=== PATIENT | female | born 1955 | race Caucasian/White ===

== ENCOUNTER 2020-07-15 15:34 | Observation (INO) | payer MEDICARE, BC, SELFPAY ==
[2020-07-15] VITALS (13 sets, daily range): BP systolic 114–129; BP diastolic 60–72; PULSE 63–88; RESP 14–20; TEMP 36.2–36.3; O2SAT 96–100; BMI 28.8
--- NOTE | ~2020-07-15 | MR_ITS ---
EXAMINATION: MR brain/brain stem wo/w con DATE: 07/16/2020 14:43 INDICATION: Altered mental status. TECHNIQUE: Magnetic resonance imaging (MRI) of the brain and brainstem was performed without and with 11 mL MultiHance intravenous contrast. Sequences included sagittal and axial T1-weighted FSE, axial diffusion-weighted FS EPI, axial T2*-weighted GRE, axial T2-weighted FLAIR Propeller, and axial T2-we ighted Propeller. Postcontrast sequences included axial and coronal T1-weighted FSE. Apparent diffusi on coefficient (ADC) maps were created. COMPARISON: Head CT 07/15/2020 FINDINGS: There is no intracranial hemorrhage, acute infarction, or abnormal intracranial mass lesion . The ventricles are normal in size. There is mucosal thickening in the paranasal sinuses. There is d ependent fluid in the maxillary sinuses. The orbits are normal. The mastoid air cells are normal. IMPRESSION: 1. Normal brain. Reviewed, dictated and finalized at location B. RAFT QUALITY CONTROL INSPECTOR IMPRESSION: 1. Normal brain.
--- NOTE | ~2020-07-15 | CT_ITS ---
EXAMINATION: CTA brain carotid DATE: 07/15/2020 17:42 INDICATION: Confusion and altered mental status TECHNIQUE: Computed tomographic angiography (CTA) of the head was performed without and with 100 mL O mnipaque-350 intravenous contrast. CTA of the neck was performed with intravenous contrast. The dose- length product was 1056.62 mGy-cm. Maximum intensity projection and volume rendered 3D-reconstruction s were created by the technologist on a separate workstation. Automated exposure control and iterativ e reconstruction technique were employed. COMPARISON: None. FINDINGS: HEAD CTA: There is no intracranial hemorrhage, acute infarction, or abnormal mass lesion. The ventric les are normal. There is no abnormal mass effect or midline shift. The cole-white matter differentiat ion is normal. The basal cisterns are patent. The orbits are normal. There is mild mucosal thickening of the paranasal sinuses. There is no significant stenosis of the basilar artery or posterior cerebral arteries. There is no si gnificant stenosis of the intracranial internal carotid arteries or the anterior or middle cerebral a rteries. The anterior communicating artery and posterior communicating arteries are normal. There is no aneurysm. NECK CTA: The thyroid gland is unremarkable. The submandibular and parotid glands are symmetric. Ther e is no lymphadenopathy. There are no masses identified. The airway is unremarkable. There is moderat e cervical spondylosis. The superior mediastinum is unremarkable. There is 0% stenosis of the proximal right internal carotid artery relative to normal distal artery l umen diameter (NASCET criteria). There is 0% stenosis of the proximal left internal carotid artery re lative to normal distal artery lumen diameter. Minimal calcified atherosclerosis is noted in the bila teral internal carotid arteries IMPRESSION: 1. No acute intracranial abnormality. Normal head CTA. 2. 0% stenosis of the proximal right internal carotid artery relative to normal distal artery lumen d iameter (NASCET criteria). 3. 0% stenosis of the proximal left internal carotid artery relative to normal distal artery lumen di ameter. Reviewed, dictated and finalized at location A. OMER RECORDS DIVISION SUPERVISOR IMPRESSION: 1. No acute intracranial abnormality. Normal head CTA. 2. 0% stenosis of the proximal right internal carotid artery relative to normal distal artery lumen diameter (NASCET criteria). 3. 0% stenosis of the proximal left internal carotid artery relative to normal distal artery lumen diameter.
--- NOTE | ~2020-07-15 | CT_ITS ---
EXAMINATION: CT brain wo con DATE: 07/15/2020 16:17 INDICATION: Confusion, altered mental state, dizziness TECHNIQUE: Computed tomography (CT) of the head was performed without intravenous contrast. The mA wa s adjusted according to patient size. Iterative reconstruction technique was employed. Exam dose: 60 5.33 mGy-cm total exam DLP. COMPARISON: None FINDINGS: No intracranial mass lesion or hemorrhage or cerebrovascular accident. No midline shift or mass effect. Normal ventricular size. No subdural or epidural hematoma. Bilateral carotid siphon internal carotid artery calcifications. No fracture or bone destruction of the cranial vault. The mastoid air cells are normally developed and aerated. There is mild soft tissue thickening of the right maxillary sinus and bilateral ethmoid air cells. IMPRESSION: Cerebral atherosclerosis No acute intracranial finding Reviewed, dictated and finalized at Location A. Reviewed, dictated and finalized at location A. LAMINATING MACHINE FEEDER
--- NOTE | ~2020-07-15 | XR_ITS ---
XR chest 2V DATE: 07/15/2020 16:23 INDICATION: Dizziness. Hypertension. TECHNIQUE: PA and lateral views COMPARISON: 07/30/2015 PA and lateral chest FINDINGS: Normal heart size. No hilar or mediastinal enlargement. No pulmonary infiltrate or consolidation, pleural effusion or pulmonary vascular congestion or pneumo thorax. Degenerative spurring of the thoracic spine. IMPRESSION: No active cardiopulmonary disease Reviewed, dictated and finalized at location A. BER LIGHT
[2020-07-15 15:43] LABS: Glucose Point of Care 114 (65-105)
--- NOTE | 2020-07-15 15:43 | ECG_ITS ---
Measurements Intervals [place] Rate: 66 P: 43 [place]: 137 QRS: -31 QRSD: 100 T: -64 QT: 378 QTc: 398 Interpretive Statements SINUS RHYTHM LEFT AXIS DEVIATION DELAYED PRECORDIAL R/S TRANSITION VOLTAGE CRITERIA FOR LVH BORDERLINE T WAVE ABNORMALITY- ANTEROLAT/INF LEADS BASELINE ARTIFACT- I, II, III, AVR, AVL, AVF, V4-V5 BORDERLINE ECG Electronically Signed On 07-15-2020 15:46:57 CLUB MANAGER by Zen March D.O.
--- NOTE | 2020-07-15 15:45 | ED.AMS ---
HPI - Altered Mental Status General Chief Complaint: Altered Mental Status Stated Complaint: dizzy Time Seen by Provider: 07/15/20 15:45 Source: patient and family Mode of arrival: wheelchair Limitations: no limitations History of Present Illness HPI narrative: Patient is a 64-year-old female with a history of hypothyroidism, hypertension who presents for evaluation of altered mental status. Patient is currently alert and oriented to person, place, to time. She reports intermittent dizziness, no spinning sensation, no double vision, no chest pain, no headache. She denies any weakness or numbness. Patient states that she has felt very fatigued throughout the day today, states that she has been easily falling asleep. He states she intermittently has been asking questions about her grandkids, intermittently about asking about sister in [place], and states that they have not seen the grandkids today, her sister in [place] is not visiting. states patient is acting very abnormal for her. She denies any drug use or alcohol use. She recently had her thyroid medication increased and has been compliant with this increase in dosage. Related Data Allergies Allergy/AdvReac Type Severity Reaction Status Date / Time No Known Allergies Allergy Verified 07/15/20 15:45 Review of Systems Review of Systems: Narrative: CONSTITUTIONAL: Denies fever, chills, or sweats. EYES: Denies visual changes, redness, or discharge. ENT: Denies rhinorrhea, congestion, sore throat, or otalgia. CARDIOVASCULAR: Denies chest pain, palpitations, or edema. RESPIRATORY: Denies cough or dyspnea. GASTROINTESTINAL: Denies abdominal pain, nausea, vomiting, or diarrhea. GENITOURINARY: Denies dysuria or hematuria. SKIN: Denies rash or itching. MUSCULOSKELETAL: Denies back pain, joint pain, or myalgia. NEUROLOGIC: Denies headache, numbness, or weakness. [facility] Past Medical History Medical History BMI 27.0-27.9,adult Chronic pain of left thumb GERD without esophagitis Hypertension Screening mammogram, encounter for Vasomotor rhinitis Surgical History Surgical History History of hysterectomy History of spinal fusion Family History Family History Mother Family history of cardiovascular disease Family history of Alzheimer's disease Father Family history of cardiovascular disease Other Family history of coronary artery disease Family history of malignant neoplasm of breast Social History Social History Smoking status: Never smoker Smoking end date: 08/06/76 Alcohol intake: current Gender identity (if verbalized by the patient): Female Exam Narrative: Exam Narrative: GENERAL: Awake, alert, conversant HEAD: Normocephalic, atraumatic. EYES: PERRLA and EOMI. ENT: Nares clear, no rhinorrhea or epistaxis. Mucous membranes moist. NECK: Supple. CHEST: No respiratory distress, breathing even and non labored HEART: Regular rate, sinus rhythm ABDOMEN:Non distended, non tender EXTREMITIES: Normal range of motion. No edema. SKIN: Warm, dry, no rash. NEURO:No focal deficits. Alert and oriented x3. Finger to nose intact bilaterally. EOMs intact without nystagmus. No facial droop/asymmetry noted bilaterally. Grimace intact. Intact sensation in face. Hearing intact bilaterally. Shoulder shrug intact. Strength 5/5 bilateral upper extremities. Strength 5/5 bilateral lower extremities. Reflexes 2+ patellar. Heel to schaffer intact bilaterally. Ambulatory exam deferred. Course Vital Signs Vital signs: Vital Signs Temperature 36.3 C L 07/15/20 15:39 Pulse Rate 68 07/15/20 15:39 Respiratory Rate 17 07/15/20 15:39 Blood Pressure 129/72 07/15/20 15:39 Pulse Oximetry 97 07/15/20 15:39 Temperature 36.3 C L 07/15
[2020-07-15 15:52] LABS: Basophils Absolute Auto 0.1 K/mm3 (0.0-0.1); Basophils Percent Auto 0.8 % (0.2-1.2); Eosinophils Absolute Auto 0.1 K/mm3 (0-0.3); Eosinophils Percent Auto 1.4 % (0-4.4); Hemoglobin 12.3 g/dL (12.0-15.0); Immature Granulocyte Absolute 0.02 K/mm3 (0.00-0.031); Immature Granulocyte Percent A 0.3 % (0-0.5); Lymphocytes Percent Auto 46.8 % (18.3-44.2); Mean Corpuscular HGB Conc 33.2 g/dl (32-36); Mean Corpuscular Hemoglobin 32.1 pg (26-34); Mean Corpuscular Volume 96.6 fl (80-100); Monocytes Absolute Auto 0.6 K/mm3 (0.1-0.6); Monocytes Percent Auto 9.4 % (2.6-8.5); Neutrophils Absolute Auto 2.7 K/mm3 (1.3-6.7); Neutrophils Percent Auto 41.3 % (45.5-73.1); Platelet Count Result 246 k/mm3 (150-375); Red Blood Count 3.83 M/mm3 (4.2-5.4); Red Cell Distribution Width 11.9 % (11.5-14.5); White Blood Count 6.6 K/mm3 (4.5-10.0)
[2020-07-15] MEDS: SODIUM CHLORIDE 0.9% IV 1,000 ML 999 ML IV CONT (15:53)
[2020-07-15 16:07] LABS: Alanine Aminotransferase 32 U/L (4-35); Albumin Level 4.5 g/dL (3.5-5.1); Alkaline Phosphatase 55 U/L (38-126); Anion Gap 9 mmol/L (8-16); Aspartate Amino Transferase 37 U/L (14-36); Bilirubin,Total 0.4 mg/dL (0.2-1.3); Blood Urea Nitrogen 18 mg/dL (7-17); Calcium 9.7 mg/dL (8.4-10.2); Carbon Dioxide 25 mmol/L (22-30); Chloride 105 mmol/L (98-107); Estimated Glomerular Filt Rate > 60; Glucose 114 mg/dL (65-105); Potassium 4.3 mmol/L (3.4-5.0); Sodium 139 mmol/L (137-145)
[2020-07-15 16:08] LABS: Fractional Inspired Oxygen 21 %; HCO3 ABG 25.1 mEq/l (22.0-26.0); Oxygen Content ABG 11.4 %vol (16.0-22.0); Oxygen Saturation ABG 61.9 % (95.0-100.0); Oxyhemoglobin 66.1 % THb (90.0-100.0); PCO2 ABG 47.2 mmHg (35.0-45.0); PO2 FiO2 Ratio Arterial Blood 1.63 %; Total Hemoglobin 12.3 g/dL (12.0-18.0); pH ABG 7.343 (7.350-7.450)
[2020-07-15 16:15] LABS: Ammonia 15 umol/L (9-30); Ethanol < 10 mg/dL (<10)
[2020-07-15 16:15] LABS: Device ROOM AIR; Modified Allen's Test Pass; Site Drawn LEFT RADIAL
[2020-07-15 16:17] LABS: PO2 ABG 34.2 mmHg (80.0-100.0)
[2020-07-15 16:19] LABS: Troponin I < 0.012 ng/mL (0.000-0.034)
[2020-07-15 16:22] LABS: INR 0.9; Prothrombin Time 12.8 Seconds (11.1-14.7)
[2020-07-15 16:23] LABS: Partial Thromboplastin Time 26.5 SECONDS (22.3-36.8)
[2020-07-15 16:38] LABS: Thyroid Stimulating Hormone 0.872 uIU/mL (0.465-4.680)
[2020-07-15 16:48] LABS: Add Urine Microscopic? NO; Appearance Urine Clear (Clear); Bilirubin Urine Negative (Negative); Blood Urine Negative (Negative); Color Urine Straw (Yellow); Glucose Urine UA Negative (Negative); Ketones Urine Negative (Negative); Leukocyte Esterase Ur Negative LEU/UL (Negative); Nitrate Urine Negative (Negative); Protein Urine Negative (Negative); Specific Grav Ur 1.006 (1.001-1.035); Urobilinogen Urine Negative mg/dL (<2.0)
[2020-07-15] MEDS: ACETAMINOPHEN 500 MG TABLET 1000 MG PO (19:23)
--- NOTE | 2020-07-15 19:52 | ADMGEN ---
This patient, Mirta Mccormick, was admitted to Medical Room [facility] at 1935. Patient/family oriented to hospital policies and general routines including ID bracelet, bed and alarms, visiting hours, pain management, procedures, bathroom and other care routines, personal items, smoking policy, room service/diet, and visiting hours. Information on how to activate the Rapid Response Team has been discussed. Patient/Family are encouraged to report perceived risks to care and to ask questions if they do not understand what they are told or what they should do.
--- NOTE | 2020-07-15 20:00 | PM.IMHP ---
H&P: HPI History of Present Illness Date/Time: 07/15/20 20:00 Chief complaint: Altered mental status, dizziness Narrative: Mirta Mccormick is a 64 year old female with past medical history hypothyroidism, hypertension, GERD presents to ED with altered mental status. Patient states yesterday she was normal at baseline, woke up this morning around 8:30 a.m. which is normal for her. She is retired for last 5 years. She thinks she went to the shower does not recall anything that happened all day but does know she was in clean clothes. She has random moments of recollection and I believe she does not really remember what happened just reiterated what her had told her. She apparently was slurring her words and was somnolent all day, had auditory hallucinations of family members. She remembers taking a nap in was woken by her [id number]-ti-ald's cold hand. She thinks she remember some things from the ED talking to a woman which is in fact correct with a female provider. By roughly 7:00 p.m. she is back to baseline with no confusion or somnolence. She described the entire episode of what she remembers as an out of body experience. She has never had any episodes like this in the past that she knows of. She states she does not take any substances, quit smoking 1.5ppd 43 years ago, seldom alcohol use, denies drug use. Only medications that is new is thyroid medication change from 88 mcg to 100 mcg 2 weeks ago. Otherwise she has been on the same medications for her acid reflux hypertension. She does take many supplements including vitamin D, vitamin E and supplement to prevent Alzheimer's disease. She is concerned because her mother has Alzheimer's dementia and had episodes of blacking out which were never explained. Patient is not on any pain medication, she had spinal fusion of L3-L4-L5 and only takes Tylenol for pain. She states she has no stress in her life and has been retired. There have been no major life events and her children are healthy and safe. In the ED: Vitals stable, lab work within normal limits, chest x-ray negative, CT head noncontrast cerebral atherosclerosis with no acute finding, CTA head and neck without stenosis, EKG normal sinus rhythm rate 66 with left axis deviation, NIH stroke scale 0. ED consulted neurology agreed to further workup. Patient needed for observation for altered mental status. Review of Systems Review of Systems: Narrative: Constitutional: No Fever, No Chills, No Night Sweats, No Fatigue, No Malaise ENT/Mouth: No Hearing Changes, No Ear Pain, No Nasal Congestion, No Sinus Pain, No Hoarseness, No sore throat, No Rhinorrhea, No Swallowing Difficulty Eyes: No Eye Pain, No Redness, No Vision Changes Cardiovascular: No Chest Pain, No Palpitations, No Dyspnea on Exertion, No Orthopnea, No Claudication, No Edema Respiratory: No Cough, No Sputum, No Wheezing, No Shortness of Breath Gastrointestinal: No Nausea, No Vomiting, No Diarrhea, No Constipation, No Abdominal Pain, No Heartburn, No Hematochezia, No Melena Genitourinary: No Dysuria, No Urinary Frequency, No Hematuria, No Urinary Incontinence, No Urgency Musculoskeletal: No Arthralgias, No Myalgias, No Joint Swelling, No Joint Stiffness, No Back Pain Skin: No Skin Lesions, No Pruritis, No Hair Changes Neuro: No Weakness, No Numbness, No Paresthesias, No Loss of Consciousness, No Syncope, No Dizziness, No Headache Psych: No Anxiety/Panic, No Depression, No Insomnia. Heme: No Bruising, No Bleeding Lymph: No Adenopathy Endocrine: No Polyuria, No Polydipsia, No Temperature Intolerance PMFSH Past Medical History Medical History (Updated 07/15/20 @ 20:22 by Saniya Patel DO) BMI 27.0-27.9,adult Chronic pain of left thumb Eczema GERD without esophagitis Hypertension Hypothyroidism Screening mammogram, encounter for Vasomotor rhinitis Surgical History Surgical History (Updated 07/15/20 @ 20:20 by Saniya Patel DO) H/O total hysterecto
[2020-07-16] VITALS (7 sets, daily range): BP systolic 113–124; BP diastolic 54–64; PULSE 62–72; RESP 14–18; TEMP 36.5–36.9; O2SAT 96–97
--- NOTE | 2020-07-16 05:40 | PCDIET ---
pt now saying bystolic is supposed to be 15mg pt md report from May says 5 mg. Pt supposed to call and have him read label to nurse. Dandre is recent md for pt due to relocation to [place].
[2020-07-16] MEDS: LEVOTHYROXINE SODIUM 100 MCG TABLET PO (05:50)
[2020-07-16 06:01] LABS: Anion Gap 8 mmol/L (8-16); Blood Urea Nitrogen 13 mg/dL (7-17); Calcium 9.2 mg/dL (8.4-10.2); Carbon Dioxide 26 mmol/L (22-30); Chloride 107 mmol/L (98-107); Estimated CRCL calculation 61 ml/min; Estimated Glomerular Filt Rate > 60; Glucose 106 mg/dL (65-105); Potassium 4.2 mmol/L (3.4-5.0); Sodium 141 mmol/L (137-145)
[2020-07-16] MEDS: LOSARTAN POTASSIUM 50 MG TABLET PO (08:55)
[2020-07-16] MEDS: SPIRONOLACTONE 50 MG TABLET 100 MG PO (08:56)
[2020-07-16] MEDS: MELOXICAM 7.5 MG TABLET 15 MG PO (08:56)
[2020-07-16] MEDS: LANSOPRAZOLE ORAL SUSP 30 MG/10 ML ORAL.SUSP PO (08:56)
--- NOTE | 2020-07-16 09:27 | WPDNEURCNPN ---
Assessment and Plan Assessment and plan (1) Hypothyroidism: Code(s): E03.9 - Hypothyroidism, unspecified Status: Acute (2) Altered mental status: Qualifiers: Altered mental status type: transient alteration of awareness Qualified Code(s): R40.4 - Transient alteration of awareness Code(s): R41.82 - Altered mental status, unspecified Status: Acute (3) Dizziness: Code(s): R42 - Dizziness and giddiness Status: Acute Additional Plan Acute changes in the mental status rule out the possibility of seizure will obtain the EEG in addition to the possibility of underlying ongoing dementia will need the MRI of the head as well further recommendation according Consult date: 07/16/20 Time Seen: 09:27 HPI: Mirta Mccormick is a 64 year old female Admitted to the hospital for the complaints of change in the mental status along with dizziness in addition to the comorbid conditions of 1. Hypertension 2. Hypothyroidism 3. GERD. As per the information available she woke [facility] in the [facility] could not recall anything what ever happen whole day and subsequently reiterated what her had told her her speech was somewhat slurred and she was somnolent and also had auditory hallucinations she describes the whole episode as an out of body experience with no history of such experience before he was mainly concerned about developing the dementia. All her lab on initial evaluation was normal she has undergone spinal fusion of L3-L5 and she takes only Tylenol on p.r.n. basis NIH stroke scale 0, head neck CTA negative, CT scan of the head negative, routine lab normal except the initial ABG Review of Systems Review of Systems: All systems reviewed & are unremarkable except as noted in HPI and below [facility] Past Medical History Medical History BMI 27.0-27.9,adult Chronic pain of left thumb Eczema GERD without esophagitis Hypertension Hypothyroidism Screening mammogram, encounter for Vasomotor rhinitis Surgical History Surgical History H/O total hysterectomy with bilateral salpingo-oophorectomy (BSO) History of hysterectomy History of spinal fusion L4-L5 fusion 05/24/2015 Family History Family History Mother Family history of cardiovascular disease Family history of Alzheimer's disease Father Family history of cardiovascular disease Breast cancer fATHER AND MOTHER Other Family history of coronary artery disease Family history of malignant neoplasm of breast Social History Social History (Updated 07/15/20 @ 22:30 by Saniya Patel DO) Social History: Independent, very active, still drives without problems Smoking packs per day: 2 Smoking cigarettes per day: 40.0 Years smoked: 6 Smoking pack-years: 12.00 Smoking status: Former smoker Tobacco type: cigarettes Additional smoking assessment comments: QUIT SMOKING 45 YEARS AGO Alcohol intake: current Drinks per week: 0 Alcohol use details: Seldom alcohol use Substance use: never Living arrangements: with family Occupation/Education: retired Additional occupation/education comments: Retired 2014 Gender identity (if verbalized by the patient): Female Spiritual care concerns: No Meds Home Medications and Allergies Home Medications Medication Instructions Recorded Confirmed Type Lmfolate Ca 6 mg-acetylcys 600 1 tablet PO DAILY #90 tablet 08/28/19 07/15/20 Rx mg-mB12 2 mg-algal oil 90.314 mg tablet lansoprazole 30 mg capsule,delayed 30 mg PO DAILY #90 cap 08/28/19 07/15/20 Rx release losartan 50 mg tablet 50 mg PO DAILY #90 tablet 08/28/19 07/15/20 Rx spironolactone 100 mg tablet 100 mg PO DAILY #90 tablet 08/28/19 07/15/20 Rx meloxicam 15 mg tablet 15 mg PO DAILY #90 tablet 05/13/20 07/15/20 Rx levothyr
[2020-07-16 09:42] LABS: CRP 0.6 mg/dL (<1.0)
--- NOTE | 2020-07-16 17:16 | PM.DS ---
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 If this reoccurs she needs to come back to emergency room and see a psychiatrist -neurology also saw the patient, no additional recommendations (2) Altered mental status: Qualifiers: Altered mental status type: transient alteration of awareness Qualified Code(s): R40.4 - Transient alteration of awareness Code(s): R41.82 - Altered mental status, unspecified Status: Acute Assessment and Plan: -see above -CT head, CTA head and neck were both negative, MRI negative -family history of Alzheimer's with mother but since patient's symptoms have resolved, do not suspect this has a part -we will need to see a pattern of behavior to have a better idea of what this episode was (3) Hypothyroidism: Code(s): E03.9 - Hypothyroidism, unspecified Status: Acute Assessment and Plan: TSH normal, continue levothyroxine (4) GERD without esophagitis: Code(s): K21.9 - Gastro-esophageal reflux disease without esophagitis Status: Acute Assessment and Plan: Continue medications as needed (5) Primary insomnia: Code(s): F51.01 - Primary insomnia Status: Acute Assessment and Plan: Patient states she rarely takes medications for this (6) Hypertension: Code(s): I10 - Essential (primary) hypertension Status: Acute Assessment and Plan: Last blood pressure 124/64, continue home meds DS: Summary Hospital Course Reason for hospitalization: Confusion Hospital Course: Patient is a 64-year-old female who is relatively healthy with a past medical history of hypertension, hypothyroid and GERD who presented emergency room for confusion. Patient states yesterday she was normal at baseline, woke up that morning around 8:30 a.m. which is normal for her. She is retired for last 5 years. She thinks she went to the shower does not recall anything that happened all day but does know she was in clean clothes. She has random moments of recollection and I believe she does not really remember what happened just reiterated what her had told her. She apparently was slurring her words and was somnolent all day, had auditory hallucinations of family members. She remembers taking a nap in was woken by her wkchrnpt-bc-kzw's cold hand. She thinks she remember some things from the ED talking to a woman which is in fact correct with a female provider. By roughly 7:00 p.m. she was back to baseline with no confusion or somnolence. She described the entire episode of what she remembers as an out of body experience. She has never had any episodes like this in the past that she knows of. She states she does not take any substances, quit smoking 1.5ppd 43 years ago, seldom alcohol use, denies drug use. Only medications that is new is thyroid medication change from 88 mcg to 100 mcg 2 weeks ago. Otherwise she has been on the same medications for her acid reflux hypertension. She does take many supplements including vitamin D, vitamin E and supplement to prevent Alzheimer's disease. She is concerned because her mother has Alzheimer's dementia and had episodes of blacking out which were never explained. Patient is not on any pain medication, she had spinal fusion of L3-L4-L5 and only takes Tylenol for pain. She states she has no stress in her life and has been retired. She was admitted to the hospitalist service
--- NOTE | 2020-07-21 10:12 | WPDNEUROLOGY ---
Neurology EEG Report General Information Date of Study: 07/16/20 TEST EEG DIAGNOSIS altered mental status CONDITION OF RECORDING awake and drowsy and sleep EEG NUMBER [id number] CLINICAL HISTORY patient reported she lost the whole day yesterday. Does not remember coming to the hospital. Taylor is back to normal today and feels fine. EEG DESCRIPTION Basic resting occipital frequency consists of low to medium voltage 8 to 10 hertz per 2nd alpha admixed with waxing and waning low-voltage 15 to 18 hertz per 2nd beta activity. During drowsiness low-voltage beta activity seen diffusely. Bilateral symmetrical sleep activity seen during sleep. Hyperventilation not done. Photic stimulation not done. Non paroxysmal nonfocal nonlateralizing. IMPRESSION No significant abnormalities noted
--- NOTE | 2020-07-26 14:42 | PC.NURSE ---
EEG shows no significant abnormalities.
== END 2020-07-16 19:30 | disposition home or self-care (01) ==
LOC: ANHED 18:38 → ANH2MED 19:02
PROVIDERS: Emergency Medicine; Physician Assistant; Student in an Organized Health Care Education/Training Program; Admitting Provider Internal Medicine; Emergency Provider Emergency Medicine; PCP Family Medicine; Visit Provider Family Medicine
DX: F44.1 Dissociative fugue (principal); R40.4 Transient alteration of awareness; E03.9 Hypothyroidism, unspecified; K21.9 Gastro-esophageal reflux disease without esophagitis; F51.01 Primary insomnia; I67.2 Cerebral atherosclerosis; I10 Essential (primary) hypertension; R42 Dizziness and giddiness; R44.0 Auditory hallucinations; R47.81 Slurred speech; Z87.891 Personal history of nicotine dependence; Z79.899 Other long term (current) drug therapy; Z98.1 Arthrodesis status
CPT/HCPCS: 36415; 36600; 70450; 70496; 70498; 70553; 71046; 80048; 80053; 80307; 81003; 82140; 82805; 82948; 84443; 84484; 85025; 85610; 85730; 86140; 93005; 95816; 96360; 99285; A9270; A9577; G0378; J7030; Q9967

== ENCOUNTER → 2020-08-26 07:17 | Outpatient (CLI) | payer MEDICARE, BC, SELFPAY ==
--- NOTE | ~2020-08-26 | MM_ITS ---
EXAMINATION: MM screening meli BI w kenyetta HISTORY: Screening mammogram TECHNIQUE: Craniocaudal and mediolateral oblique 3-D tomosynthesis images were obtained and synthetic 2-D images were generated. Bilateral rotated lateral CC views. CAD analysis was submitted and interp reted. COMPARISON: No prior mammogram is available for comparison at this institution. BREAST PARENCHYMAL COMPOSITION: The breasts are heterogeneously dense, which may obscure small masses . FINDINGS: Numerous benign microcalcifications are scattered throughout both breasts. There is approximately 9 x 16 mm low-density circumscribed mass with halo sign in the subareolar area of the right breast, consistent with benign process, most likely a cyst (MLO Tomosynthesis image 40/ 69; craniocaudal Tomosynthesis image 34/68). Bilateral benign-appearing axillary tail lymph nodes. There is no evidence of suspicious mass, calcification, or architectural distortion to suggest malign mallory in either breast. There has been no suspicious interval change. IMPRESSION: 1. No mammographic evidence of malignancy. 2. Recommend routine screening mammography in one year. BI-RADS Category 2: Benign finding(s). Reviewed, dictated and finalized at location A. E SALES REPRESENTATIVE
== END ==
PROVIDERS: PCP Family Medicine; Visit Provider Family Medicine
DX: Z12.31 Encounter for screening mammogram for malignant neoplasm of breast (principal); R92.0 Mammographic microcalcification found on diagnostic imaging of breast
CPT/HCPCS: 77063; 77067

== ENCOUNTER → 2021-05-17 09:24 | Outpatient (CLI) | payer MEDICARE, BC, SELFPAY ==
--- NOTE | ~2021-05-17 | XR_ITS ---
XR cervical spine min 6V DATE: 05/17/2021 09:56 INDICATION: Cervical radiculopathy TECHNIQUE: AP, open-mouth, lateral views. Flexion and extension lateral views. COMPARISON: None FINDINGS: There is straightening. C1 and C2 are normally aligned and the odontoid process is intact. There is mild anterolisthesis at C3-4, C4-5 and C5-6. There is moderate degenerative disc disease at C5-6 and moderately severe degenerative disc disease at C6-7. No fracture or dislocation or locked facet. No prevertebral soft tissue swelling. IMPRESSION: Mild anterolisthesis at C3-4, C4-5 and C5-6 Moderate and moderately severe degenerative disc disease at C5-6 and C6-7, respectively Reviewed, dictated and finalized at location B. IMPRESSION: Mild anterolisthesis at C3-4, C4-5 and C5-6 Moderate and moderately severe degenerative disc disease at C5-6 and C6-7, resp ectively
== END ==
PROVIDERS: PCP Family Medicine; Visit Provider Family Medicine
DX: M47.22 Other spondylosis with radiculopathy, cervical region (principal)
CPT/HCPCS: 72052

== ENCOUNTER 2021-06-08 09:56 | Outpatient (CLI) | payer MEDICARE, BC, SELFPAY ==
--- NOTE | 2021-06-08 11:00 | NEURO_ITS ---
Impression: # Complains of radiating pain from neck. # Subtle evolving Carpal Tunnel Syndrome. # Normal needle/EMG exam. # Clinical correlation recommended; Higher involvement cannot be ruled out. Nerve Conduction Studies Anti Sensory Summary Table Stim Site NR Peak (ms) P-T Amp (?V) Site1 Site2 Delta-P (ms) Dist (cm) Luis Miguel (m/s) Left Median Anti Sensory (2-3nd Digit) Wrist 2.8 73.8 Wrist 2-3nd Digit 2.8 14.0 50 Wrist 3.0 51.1 Wrist 2-3nd Digit 2.8 14.0 50 Right Median Anti Sensory (2-3nd Digit) Wrist 3.4 15.2 Wrist 2-3nd Digit 3.4 14.0 41 Wrist 2.9 27.2 Wrist 2-3nd Digit 3.4 14.0 41 Left Radial Anti Sensory (Base 1st Digit) Wrist 1.9 34.9 Wrist Base 1st Digit 1.9 0.0 Right Radial Anti Sensory (Base 1st Digit) Wrist 1.9 19.1 Wrist Base 1st Digit 1.9 0.0 Left Ulnar Anti Sensory (5th Digit) Wrist 2.2 64.5 Wrist 5th Digit 2.2 14.0 64 Right Ulnar Anti Sensory (5th Digit) Wrist 2.0 25.6 Wrist 5th Digit 2.0 14.0 70 Motor Summary Table Stim Site NR Onset (ms) O-P Amp (mV) Site1 Site2 Delta-0 (ms) Dist (cm) Luis Miguel (m/s) Left Median Motor (Abd Poll Brev) Wrist 2.7 2.6 Elbow Wrist 4.8 28.0 58 Elbow 7.5 2.0 Right Median Motor (Abd Poll Brev) Wrist 3.5 3.0 Elbow Wrist 4.2 25.0 60 Elbow 7.7 2.8 Left Ulnar Motor (Abd Dig Minimi) Wrist 2.0 4.9 A Elbow Wrist 4.5 27.0 60 A Elbow 6.5 5.4 Right Ulnar Motor (Abd Dig Minimi) Wrist 2.1 5.5 A Elbow Wrist 4.7 28.0 60 A Elbow 6.8 5.0 F Wave Studies NR F-Lat (ms) L-R F-Lat (ms) Left Median (Mrkrs) (Abd Poll Brev) 26.80 0.39 Right Median (Mrkrs) (Abd Poll Brev) 26.41 0.39 Left Ulnar (Mrkrs) (Abd Dig Min) 25.90 0.87 Right Ulnar (Mrkrs) (Abd Dig Min) 25.04 0.87 EMG Side Muscle Nerve Root Ins Act Fibs Amp Dur Recrt Comment Right 1stDorInt Ulnar C8-T1 Nml Nml Nml Nml Nml Right Ext Indicis Radial (Post Int) C7-8 Nml Nml Nml Nml Nml Right Ext Digitorum Radial (Post Int) C7-8 Nml Nml Nml Nml Nml Right BrachioRad Radial C5-6 Nml Nml Nml Nml Nml Right PronatorTeres Median C6-7 Nml Nml Nml Nml Nml Right Abd Poll Brev Median C8-T1 Nml Nml Nml Nml Nml Left 1stDorInt Ulnar C8-T1 Nml Nml Nml Nml Nml Left Ext Indicis Radial (Post Int) C7-8 Nml Nml Nml Nml Nml Left Ext Digitorum Radial (Post Int) C7-8 Nml Nml Nml Nml Nml Left BrachioRad Radial C5-6 Nml Nml Nml Nml Nml Left PronatorTeres Median C6-7 Nml Nml Nml Nml Nml Left Abd Poll Brev Median C8-T1 Nml Nml Nml Nml Nml MTDD
== END 2021-06-08 09:57 | disposition home or self-care (01) ==
LOC: ANHNEURO 09:57
PROVIDERS: PCP Family Medicine; Visit Provider Family Medicine
DX: G56.00 Carpal tunnel syndrome, unspecified upper limb (principal)
CPT/HCPCS: 95886; 95911

== ENCOUNTER → 2021-11-01 10:44 | Outpatient (CLI) | payer MEDICARE, BC, SELFPAY ==
--- NOTE | ~2021-11-01 | MM_ITS ---
EXAMINATION: MM screening meli BI w kenyetta HISTORY: Screening mammogram, family history of breast cancer in her mother. TECHNIQUE: Craniocaudal and mediolateral oblique 3-D tomosynthesis images were obtained and synthetic 2-D images were generated. CAD analysis was submitted and interpreted. COMPARISON: 08/26/2020 BREAST PARENCHYMAL COMPOSITION: The breasts are heterogeneously dense, which may obscure small masses . FINDINGS: Scattered benign-appearing calcifications are present. There is no suspicious mass, calcifi cation, or architectural distortion to suggest malignancy in either breast. There has been no suspici ous interval change. IMPRESSION: 1. No mammographic evidence of malignancy. 2. Recommend routine screening mammography in one year. BI-RADS Category 2: Benign finding(s). Reviewed, dictated and finalized at location A.
== END ==
PROVIDERS: PCP Family Medicine; Visit Provider Family Medicine
DX: Z12.31 Encounter for screening mammogram for malignant neoplasm of breast (principal)
CPT/HCPCS: 77063; 77067

== ENCOUNTER → 2021-12-06 09:50 | Outpatient (CLI) | payer MEDICARE, BC, SELFPAY ==
--- NOTE | ~2021-12-06 | MR_ITS ---
EXAMINATION: MR shoulder LT wo con DATE: 12/06/2021 10:38 INDICATION: Impingement syndrome of left shoulder. TECHNIQUE: Magnetic resonance imaging (MRI) of the left shoulder was performed without intravenous co ntrast. Sequences included axial PD-weighted FS FSE, coronal oblique PD-weighted FS FSE and T2-weight ed FS FSE, and sagittal oblique T2-weighted FS FSE and T1-weighted FSE. COMPARISON: Left shoulder radiographs 10/12/2021 FINDINGS: Coracoacromial arch: The acromion undersurface is curved in morphology (type II). There is severe acromioclavicular joint osteoarthritis including inferiorly directed osteophytes. There is a physiologic volume of fluid in s ubacromial/subdeltoid bursa. Rotator cuff: There is mild supraspinatus and infraspinatus tendinopathy. There is a small interstitial tear of the distal attachment of the conjoined portion of the tendon. Teres minor tendon is normal. There is mil d subscapularis tendinopathy. There is no asymmetric fatty atrophy of the rotator cuff muscle bellies . Biceps tendon and glenoid labrum: Biceps tendon is in bicipital groove. There is a partial tear of intra-articular biceps tendon. There is a tear of superior labrum from 11:00 to 12:00 (SLAP tear). Fluid: There is a small glenohumeral joint effusion. Bones/cartilage: There is partial-thickness cartilage loss of anterior glenoid. There is partial-thickness cartilage l oss of humeral head. IMPRESSION: 1. Small interstitial tear of the distal attachment of supraspinatus and infraspinatus tendons. 2. Partial tear of intra-articular biceps tendon. 3. Mild glenohumeral joint chondrosis. SLAP tear. 4. Severe acromioclavicular joint osteoarthritis. 5. Small glenohumeral joint effusion. Reviewed, dictated and finalized at location B. IMPRESSION: 1. Small interstitial tear of the distal attachment of supraspinatus and infras pinatus tendons. 2. Partial tear of intra-articular biceps tendon. 3. Mild glenohumeral joint chondrosis. SLAP tear. 4. Severe acromioclavicular joint osteoarthritis. 5. Small glenohumeral joint effusion.
== END ==
PROVIDERS: PCP Family Medicine; Visit Provider Physician Assistant Surgical
DX: S43.432A Superior glenoid labrum lesion of left shoulder, initial encounter (principal); M75.42 Impingement syndrome of left shoulder; M19.012 Primary osteoarthritis, left shoulder; S46.212A Strain of muscle, fascia and tendon of other parts of biceps, left arm, initial encounter; M25.412 Effusion, left shoulder
CPT/HCPCS: 73221

== ENCOUNTER 2022-02-07 13:36 | Outpatient (CLI) | payer MEDICARE, BC, SELFPAY ==
--- NOTE | ~2022-02-07 | MR_ITS ---
EXAMINATION: MR lumbar spine wo con DATE: 02/07/2022 14:57 INDICATION: Back pain with radiculopathy TECHNIQUE: Magnetic resonance imaging (MRI) of the lumbar spine was performed without intravenous con trast. Sequences included sagittal T2-weighted FSE, sagittal T2-weighted FS FSE, sagittal T1-weighted FSE, and axial T2-weighted FSE. COMPARISON: None FINDINGS: 10 degrees lumbar levoscoliosis. 2 mm retrolisthesis L3 on L4 with severe disc height loss and associ ated fibrovascular degenerative endplate changes. Marrow signal is otherwise unremarkable. L4-L5 disc ectomy with instrumented anterior and posterior spinal fusion. Bone graft cage with some early incorp oration of the bone graft material . Also appears to be solid osseous fusion across the bilateral L4- L5 facet joints with bilateral vertical ruslan and pedicle screw fixations. Remaining vertebral body and disc heights are normal. The conus medullaris terminates at T12-L1. There is normal signal in the ca udal spinal cord. Paravertebral soft tissues are unremarkable. The following disc levels are specific ally discussed: T12-L1: The disc does not extend beyond the endplate margin. There is mild bilateral facet joint oste oarthritis. There is no neural foraminal stenosis. There is no central canal stenosis. L1-L2: The disc does not extend beyond the endplate margin. There is mild left and minimal right face t joint osteoarthritis. There is no neural foraminal stenosis. There is no central canal stenosis. L2-L3: Small left foraminal zone disc protrusion. There is mild to moderate bilateral facet joint ost eoarthritis. There is mild left and minimal right neural foraminal stenosis. There is no central erika l stenosis. L3-L4: Disc is bulging. There is hypertrophy of the ligamentum flavum. There is moderate bilateral f acet joint osteoarthritis. There is moderate bilateral neural foraminal stenosis. There is mild centr al canal stenosis with narrowing of the left and right lateral recesses. L4-L5: Combined anterior and posterior spinal fusion. Posterior decompression with suggestion of rese ction of the right side of the ligamentum flavum. There is mild bilateral neural foraminal stenosis. There is no central canal stenosis. L5-S1: Small left foraminal zone disc protrusion. There is moderate bilateral facet joint osteoarthri tis. There is mild right and mild to moderate left neural foraminal stenosis. There is no central can al stenosis. IMPRESSION: 1. 10 degrees lumbar levoscoliosis. 2. Combined instrumented anterior and posterior spinal fusion at L4-L5. 3. Lumbar spondylosis, severe at L3-L4 and otherwise mild. Reviewed, dictated and finalized at location A.
== END 2022-02-07 13:37 | disposition home or self-care (01) ==
PROVIDERS: PCP Family Medicine; Visit Provider Family Medicine
DX: M47.27 Other spondylosis with radiculopathy, lumbosacral region (principal); Z98.1 Arthrodesis status
CPT/HCPCS: 72148

== ENCOUNTER 2022-10-21 08:01 | Outpatient (CLI) | payer MEDICARE, BC, SELFPAY ==
--- NOTE | ~2022-10-21 | CT_ITS ---
EXAMINATION: CT sinus wo con DATE: 10/21/2022 08:17 INDICATION: Chronic sinusitis TECHNIQUE: Computed tomography (CT) of the paranasal sinuses was performed without intravenous contra st. The dose-length product was 292.34 mGy-cm. Automated exposure control and iterative reconstructio n technique were employed. COMPARISON: CT dated 07/15/2020 FINDINGS: There is mild mucosal thickening of the frontal, ethmoid and sphenoid sinuses. There is mod erate mucosal thickening of the maxillary sinuses. Mastoids are pneumatized. Rightward nasal septal d eviation. Left ostiomeatal unit is patent. Right ostiomeatal unit is occluded by soft tissue. There i s left-sided milo bullosa. Mastoids are pneumatized. IMPRESSION: 1. Pansinusitis. Reviewed, dictated and finalized at location A. IMPRESSION: 1. Pansinusitis.
== END 2022-10-21 08:02 | disposition home or self-care (01) ==
PROVIDERS: PCP Family Medicine; Visit Provider Family Medicine
DX: J32.9 Chronic sinusitis, unspecified (principal)
CPT/HCPCS: 70486

== ENCOUNTER → 2022-12-12 15:16 | Outpatient (CLI) | payer MEDICARE, BC, SELFPAY ==
--- NOTE | ~2022-12-12 | MM_ITS ---
EXAMINATION: MM screening meli BI w kenyetta HISTORY: Screening mammogram TECHNIQUE: Craniocaudal and mediolateral oblique 3-D tomosynthesis images were obtained and synthetic 2-D images were generated. CAD analysis was submitted and interpreted. COMPARISON: 11/01/2021, 08/26/2020 BREAST PARENCHYMAL COMPOSITION:The breasts are heterogeneously dense, which may obscure small masses. FINDINGS: Extensive bilateral benign calcifications are essentially unchanged. No suspicious mass, ca lcification, or architectural distortion are identified in either breast to suggest malignancy. There has been no suspicious interval change. IMPRESSION: No mammographic evidence of malignancy. Recommend routine screening mammography in one year. BI-RADS Category 2: Benign finding(s). Reviewed, dictated and finalized at location M.
== END ==
PROVIDERS: PCP Family Medicine; Visit Provider Family Medicine
DX: Z12.31 Encounter for screening mammogram for malignant neoplasm of breast (principal)
CPT/HCPCS: 77063; 77067

== ENCOUNTER 2023-04-19 14:01 | Outpatient (CLI) | payer MEDICARE, BC, SELFPAY ==
--- NOTE | ~2023-04-19 | XR_ITS ---
XR clavicle RT 04/19/2023 14:21 Indication: Right shoulder pain Procedure: 2 views right shoulder Comparison: No prior studies for comparison. Findings: There is osteoarthritis of the acromioclavicular joint. No fracture or traumatic malalignme nt. There is anatomic alignment. No soft tissue abnormality. No foreign bodies. Impression: 1: Mild osteoarthritis of the right acromioclavicular joint. Reviewed, dictated and finalized at location L. Impression: 1: Mild osteoarthritis of the right acromioclavicular joint.
--- NOTE | ~2023-04-19 | XR_ITS ---
EXAMINATION: XR chest 2V 04/19/2023 14:21 INDICATION: Soft tissue lobe medial aspect of the clavicle PROCEDURE: 2 view chest COMPARISON: 07/15/2020 FINDINGS: The lungs are clear. The cardiomediastinal silhouette is within normal limits. There are no pleural effusions. There is no pneumothorax suspected. IMPRESSION: 1: NO ACUTE CARDIOPULMONARY DISEASE. Reviewed, dictated and finalized at location L.
== END 2023-04-19 14:02 | disposition home or self-care (01) ==
PROVIDERS: PCP Family Medicine; Visit Provider Family Medicine
DX: M79.89 Other specified soft tissue disorders (principal); M19.011 Primary osteoarthritis, right shoulder
CPT/HCPCS: 71046; 73000

== ENCOUNTER 2023-09-12 10:44 | Outpatient (CLI) | payer MEDICARE, BC, SELFPAY ==
--- NOTE | ~2023-09-12 | XR_ITS ---
Left Knee Technique: AP, lateral, and sunrise views were obtained. Clinical History: Pain Findings: No fracture or dislocation is seen. Osseous alignment is anatomic. Joint spaces are preserv ed without degenerative or erosive change. Soft tissues are unremarkable. No joint effusion is seen. Impression: Unremarkable left knee radiographs. Reviewed, dictated and finalized at location . CRUSHER OPERATOR Impression: Unremarkable left knee radiographs.
== END 2023-09-12 10:45 | disposition home or self-care (01) ==
PROVIDERS: PCP Family Medicine; Visit Provider Orthopaedic Surgery
DX: M25.562 Pain in left knee (principal); W19.XXXD Unspecified fall, subsequent encounter
CPT/HCPCS: 73562

== ENCOUNTER 2024-01-30 10:14 | Outpatient (CLI) | payer MEDICARE, BC, SELFPAY ==
--- NOTE | ~2024-01-30 | MM_ITS ---
EXAMINATION: MM screening meli BI w kenyetta HISTORY: Screening mammogram, family history of breast cancer in her mother. TECHNIQUE: Craniocaudal and mediolateral oblique 3-D tomosynthesis images were obtained and synthetic 2-D images were generated. CAD analysis was submitted and interpreted. COMPARISON: 12/12/2022, 10/23/2021, 08/26/2020 BREAST PARENCHYMAL COMPOSITION:Dense: The breasts are heterogeneously dense, which may obscure small masses. FINDINGS: Extensive bilateral benign calcifications are again present. There is a 9 mm partially obsc ured mass in the lower, probably outer left breast, low-density.. No other suspicious interval change . IMPRESSION: 9 mm partially obscured mass in left breast, as detailed above. Spot compression views, and ultrasoun d, recommended for further evaluation. BI-RADS Category 0: Incomplete: Needs additional imaging evaluation. Reviewed, dictated and finalized at location . IMPRESSION: 9 mm partially obscured mass in left breast, as detailed above. Spot compressio n views, and ultrasound, recommended for further evaluation. BI-RADS Category 0: Incomplete: Needs additional imaging evaluation.
== END 2024-01-30 10:15 ==
PROVIDERS: PCP Family Medicine; Visit Provider Family Medicine
DX: Z12.31 Encounter for screening mammogram for malignant neoplasm of breast (principal); R92.8 Other abnormal and inconclusive findings on diagnostic imaging of breast
CPT/HCPCS: 77063; 77067

== ENCOUNTER 2024-02-14 11:30 | Outpatient (CLI) | payer MEDICARE, BC, SELFPAY ==
--- NOTE | ~2024-02-14 | XR_ITS ---
XR cervical spine 4-5V 02/14/2024 11:55 Indication: Neck pain for one week Procedure: 5 views cervical spine Comparison: 05/17/2021 Findings: Straightening of cervical lordosis. There is degenerative anterolisthesis at C4-5 and C5-6. There is disc narrowing at C5-6, C6-7 and C7-T1. There is moderate multilevel facet and uncinate hyp ertrophy. Odontoid process is normal. No prevertebral soft tissue swelling. No acute fracture or trau matic malalignment. Lateral masses normally aligned. Lung apices are normal. Impression: 1: Severe cervical spondylosis with progression since prior examination. Reviewed, dictated and finalized at location B. Impression: 1: Severe cervical spondylosis with progression since prior examination.
--- NOTE | ~2024-02-14 | XR_ITS ---
XR shoulder LT min 2V 02/14/2024 11:55 Indication: Left shoulder pain Procedure: 4 views left shoulder Comparison: 10/12/2021 Findings: There is mild polyarticular osteoarthritis. No fracture or traumatic malalignment. No forei gn bodies. No soft tissue abnormality. Impression: 1: Mild polyarticular osteoarthritis. Reviewed, dictated and finalized at location B. Impression: 1: Mild polyarticular osteoarthritis.
== END 2024-02-14 11:31 | disposition home or self-care (01) ==
PROVIDERS: PCP Family Medicine; Visit Provider Nurse Practitioner Family
DX: M47.22 Other spondylosis with radiculopathy, cervical region (principal); M19.012 Primary osteoarthritis, left shoulder
CPT/HCPCS: 72050; 73030

== ENCOUNTER 2024-02-22 08:51 | Outpatient (CLI) | payer MEDICARE, BC, SELFPAY ==
--- NOTE | ~2024-02-22 | MR_ITS ---
MRI of the cervical spine Clinical History: Cervical spondylosis Technique: Axial T2-weighted and gradient images, and sagittal T1-weighted, T2-weighted, and STIR radha ges were acquired. Findings: There is no fracture or dislocation of the cervical spine. Vertebral bodies maintain normal height and alignment. No suspicious bone signal abnormality seen. At C2-C3, there is no disc bulge or herniation. No spinal canal stenosis, cord compression, or neural foraminal narrowing seen. There is right facet arthropathy. At C3-C4, there is minimal disc osteophyte complex, but no canal stenosis or cord compression. There is bilateral neural foraminal narrowing, left worse than right, bilateral facet arthropathy. At C4-C5, there is minimal disc bulge. There is bilateral facet arthropathy. There is probable minima l bilateral neural foraminal narrowing. No canal stenosis or cord compression. At C5-C6, there is moderate degenerative disc narrowing, with minimal disc osteophyte complex. There is mild canal stenosis without fadia cord compression. There is mild bilateral facet arthropathy. The re is left neural foraminal narrowing. Right neural foramen probably preserved. At C6-7 C7, there is moderate to advanced degenerative disc narrowing. There is mild disc ossify comp diane. There is canal stenosis and possible minimal flattening the ventral cord. There is bilateral pia ral foraminal narrowing, left worse than right. No abnormal signal seen in the spinal cord. Paravertebral soft tissues are unremarkable. Impression: Moderate degenerative spondylosis, as above, especially at the lower cervical spine. Reviewed, dictated and finalized at [facility]. Impression: Moderate degenerative spondylosis, as above, especially at the lower cervical s pine.
== END 2024-02-22 08:52 ==
LOC: GOSHIMG 08:52
PROVIDERS: PCP Family Medicine; Visit Provider Nurse Practitioner Family
DX: M47.892 Other spondylosis, cervical region (principal)
CPT/HCPCS: 72141

== ENCOUNTER 2024-03-05 08:50 | Outpatient (CLI) | payer MEDICARE, BC, SELFPAY ==
--- NOTE | ~2024-03-05 | MMUS_ITS ---
EXAMINATION: MM diagnostic meli LT w kenyetta, US breast LT complete HISTORY: Follow-up partially obscured left breast mass TECHNIQUE: Additional 3-D tomosynthesis images of the left breast were performed and synthetic 2-D im ages were generated. CAD analysis was submitted and interpreted. High resolution complete left breast ultrasound was performed. COMPARISON: Comparison to multiple prior studies sequentially, with oldest reviewed study dated 08/26. BREAST PARENCHYMAL COMPOSITION: Dense: The breasts are heterogeneously dense, which may obscure small masses FINDINGS: MAMMOGRAPHIC FINDINGS: There are stable scattered punctate calcifications throughout the left breast, likely benign. No disc rete mass or architectural distortion is identified. ULTRASOUND: Complete US of all 4 quadrants of the left breast and retroareolar region was reviewed. At 3:00, 4 cm from the nipple there is an oval hypoechoic mass with heterogeneous internal echoes measuring 5 mm. On image 11 the left lateral wall appears slightly thickened and irregular with internal vascularity seen on image 13. At 3:00, 3 cm from the nipple there is an oval hypoechoic mass with slightly irregu lar margins and posterior acoustic enhancement measuring 10 x 5 x 9 mm. At 10:00, 5.5 cm from the nip ple there is a parallel oriented irregular shaped hypoechoic mass measuring 1.4 x 0.4 x 0.6 cm. No si gnificant posterior features or internal vascularity. There are the nipple there are multiple mildly prominent ducts. IMPRESSION: 1. Multiple left breast masses including 5 mm mass at 3:00, 4 cm from the nipple, 10 mm mass at 3:00, 3 cm from the nipple and a 1.4 cm mass at 10:00, 5.5 cm from the nipple. 2. Ultrasound-guided biopsy of these masses recommended. BI-RADS category 4, suspicious findings. Reviewed, dictated and finalized at location B. IMPRESSION: 1. Multiple left breast masses including 5 mm mass at 3:00, 4 cm from the nippl e, 10 mm mass at 3:00, 3 cm from the nipple and a 1.4 cm mass at 10:00, 5.5 cm from the nipple. 2. Ultrasound-guided biopsy of these masses recommended. BI-RADS category 4, suspicious findings.
== END 2024-03-05 08:51 ==
LOC: MICIMG 08:51
PROVIDERS: PCP Family Medicine; Visit Provider Nurse Practitioner Family
DX: R92.8 Other abnormal and inconclusive findings on diagnostic imaging of breast (principal); N63.20 Unspecified lump in the left breast, unspecified quadrant
CPT/HCPCS: 76641; 77061; 77065; G0279

== ENCOUNTER 2024-03-31 07:50 | Outpatient (CLI) | payer MEDICARE, BC, SELFPAY ==
--- NOTE | ~2024-03-31 | MMUS_ITS ---
MM post biopsy diagnostic LT, US breast biopsy LT w image EXAMINATION: US GUIDED NEEDLE BIOPSY WITH VACUUM ASSISTANCE DATE: 03/31/2024 10:24 CDT INDICATION: Left breast masses seen on prior examination. Ultrasound-guided core biopsy is requested to evaluate for malignancy. BREAST PARENCHYMAL COMPOSITION: Dense: The breasts are extremely dense, which lowers the sensitivity of mammography. TECHNIQUE AND FINDINGS: The risks and potential benefits of the procedure were discussed with the patient, and written inform ed consent was obtained. After sterile preparation of the left breast, 1% lidocaine was utilized for local anesthesia. 1% lidocaine with epinephrine was used for deep anesthesia. At 3:00, 3 cm from the nipple there is a 1.2 cm simple cyst. No biopsies required for this mass. At 3 :00, 4 cm from the nipple there is an oval hypoechoic mass which was completely aspirated with clear fluid. This is compatible with a cyst. A solid irregular shaped hypoechoic left breast masses identif ied at 10:00, 5.5 cm from the nipple for which stereotactic biopsy was performed. A 10G vacuum-assisted biopsy gun needle was advanced through to the outer edge of the region of inter est from a superior/inferior/medial/lateral/superolateral/superomedial/inferolateral/inferomedial blaze giron utilizing sonographic guidance. A total of three tissue core samples were obtained through the lesion. An Inrad tissue marker clip was then placed at the biopsy site. Hemostasis was achieved. The patient tolerated procedure well and there was no evidence of immediate complication. The patien t was given verbal instructions partly is from the department. Left breast mammograms to document ti ssue marker clip placement. The tissue samples were submitted to surgical pathology for histologic an alysis. IMPRESSION: 1. Successful ultrasound-guided vacuum-assisted biopsy of left breast mass at 10:00, 5.5 cm from the nipple with post procedure mammogram for marker placement. Please refer to pathology report for hist ologic analysis. 2: Complete fine-needle aspiration of left breast mass at 3:00, 4 cm from the nipple was performed w ith resolution of the cyst. Reviewed, dictated and finalized at location B. IMPRESSION: 1. Successful ultrasound-guided vacuum-assisted biopsy of left breast mass at 10:00, 5.5 cm from the nipple with post procedure mammogram for marker placemen t. Please refer to pathology report for histologic analysis. 2: Complete fine-needle aspiration of left breast mass at 3:00, 4 cm from the nipple was performed with resolution of the cyst.
== END 2024-03-31 07:51 | disposition home or self-care (01) ==
PROVIDERS: PCP Family Medicine; Visit Provider Nurse Practitioner Family
DX: R92.8 Other abnormal and inconclusive findings on diagnostic imaging of breast (principal); N63.20 Unspecified lump in the left breast, unspecified quadrant
CPT/HCPCS: 19083; 77065; 88305; A4648

== ENCOUNTER 2025-01-06 10:17 | Outpatient (CLI) | payer MEDICARE, BC, SELFPAY ==
--- NOTE | ~2025-01-06 | XR_ITS ---
EXAMINATION: XR chest 2V 01/06/2025 10:30 INDICATION: Chest pain PROCEDURE: 2 view chest COMPARISON: 04/19/2023 FINDINGS: The lungs are clear. The cardiomediastinal silhouette is within normal limits. There are no pleural effusions. There is no pneumothorax suspected. There is diffuse idiopathic skeletal hyp erostosis (DISH) of the thoracic spine. IMPRESSION: 1: NO ACUTE CARDIOPULMONARY DISEASE. Reviewed, dictated and finalized at location A.
== END 2025-01-06 10:18 | disposition home or self-care (01) ==
LOC: MICIMG 10:19
PROVIDERS: PCP Family Medicine; Visit Provider Family Medicine
DX: R07.9 Chest pain, unspecified (principal)
CPT/HCPCS: 71046

== ENCOUNTER 2025-01-28 08:28 | Outpatient (CLI) | payer MEDICARE, BC, SELFPAY ==
--- NOTE | ~2025-01-28 | NM_ITS ---
EXAMINATION: NM shilo stress w perfusion DATE: 01/28/2025 11:47 INDICATION: Chest pain TECHNIQUE: Rest images were obtained following intravenous administration of 10 mCi Tc99m tetrofosmin (Myoview). The patient was infused intravenously with Lexiscan (Regadenoson). Then, 30 mCi Tc99m tet rofosmin (Myoview) was administered intravenously, and stress images were obtained. Data was reconstr ucted into short axis and horizontal and vertical long axis SPECT images. Gated SPECT images were als o obtained. COMPARISON: None. FINDINGS: There is no definite reversible or fixed perfusion abnormality to suggest ischemia or infar ction. There is normal left ventricular chamber size, wall motion and ejection fraction. Left ventr icular ejection fraction measures 68%. IMPRESSION: 1. Normal myocardial perfusion at rest and during stress. 2. Left ventricular ejection fraction measuring 68%. Reviewed, dictated and finalized at location A.
--- NOTE | 2025-01-28 08:52 | EST_ITS ---
Patient Info Name: Mirta Mccormick Age: 69 years : 1955 Gender: Female Ht: 64 in Wt: 159 lbs BSA: 1.82 m2 HR: 65 bpm BP: 136 / 79 mmHg Exam Date: 01/28/2025 8:52 AM Patient Status: O Admit Date: 01/28/2025 Exam Type: CA stress shilo w NM A regadenoson stress test was performed. Staff Referring Physician: Dae Dean MD Attending Provider: Dae Dean MD Exercise Technologist: Yola Borjas Exercise Physician: Zen March DO Summary 1. 1. Negative lexiscan stress test for ischemic ST changes by ECG criteria. 2. 2. Stable hemodynamics throughout the test. 3. 3. Nuclear scan to follow and will be reported separately. Please correlate with it. 4. 4. Patient informed of the above results. Protocol: Lexiscan Stress ECG Details Stage: REST Duration (min): 0 min : 45 sec HR (bpm): 64 SBP (mmHg): 136 DBP (mmHg): 79 Stage: REST Duration (min): 4 min : 49 sec HR (bpm): 71 SBP (mmHg): 136 DBP (mmHg): 79 Stage: STAGE 1 Duration (min): 1 min : 0 sec HR (bpm): 93 SBP (mmHg): 154 DBP (mmHg): 74 Stage: RECOVERY Duration (min): 1 min : 0 sec HR (bpm): 92 SBP (mmHg): 154 DBP (mmHg): 74 Stage: RECOVERY Duration (min): 2 min : 0 sec HR (bpm): 91 SBP (mmHg): 154 DBP (mmHg): 74 Stage: RECOVERY Duration (min): 3 min : 0 sec HR (bpm): 93 SBP (mmHg): 160 DBP (mmHg): 77 Stage: RECOVERY Duration (min): 4 min : 0 sec HR (bpm): 87 SBP (mmHg): 160 DBP (mmHg): 77 Stage: RECOVERY Duration (min): 5 min : 0 sec HR (bpm): 92 SBP (mmHg): 149 DBP (mmHg): 81 Stage: RECOVERY Duration (min): 5 min : 2 sec HR (bpm): 93 SBP (mmHg): 149 DBP (mmHg): 81 Rest HR: 71 bpm Peak HR: 94 bpm Rest Sys BP: 136 mmHg Peak Sys BP: 160 mmHg Max Pred HR: 150 bpm % Max Pred HR: 63 % Target HR: 128 bpm Max RPP: 15,040 bpm*mmHg Termination Reason: Completed protocol Cardiac Symptoms: Shortness of breath Total Time: 1 min : 0 sec Rest Cisneros BP: 79 mmHg Peak Cisneros BP: 77 mmHg Total Dose: 0.4 mg Resting ECG Sinus rhythm. Stress ECG No ST changes. Arrhythmias None. Report Signatures
== END 2025-01-28 08:29 | disposition home or self-care (01) ==
PROVIDERS: PCP Family Medicine; Visit Provider Family Medicine
DX: I45.9 Conduction disorder, unspecified (principal); R07.2 Precordial pain
CPT/HCPCS: 78452; 93017; A9502; J2785